=== PATIENT | male | born 1975 | race Caucasian/White ===

== ENCOUNTER 2024-05-03 05:30 | Day surgery (SDC) | payer OTHER ==
[~2024-05-03] VITALS: Ht 182.9 cm; Wt 120.4 kg
[2024-05-03] MEDS ORDERED: ACETAMINOPHEN 500 MG TABLET ONE (05:44)
[2024-05-03] MEDS ORDERED: GABAPENTIN 300 MG CAPSULE ONE (05:45)
[2024-05-03] MEDS ORDERED: oxyCODONE HCL 10 MG TAB.ER.12H PO ONE (05:45)
[2024-05-03] MEDS: SCOPOLAMINE HYDROBROMIDE 1 MG PATCH .72 H (TRANSDERM-SCOP) TD ONE (06:15)
[2024-05-03] MEDS: ACETAMINOPHEN 500 MG TABLET PO ONE (06:15)
[2024-05-03] MEDS: GABAPENTIN 300 MG CAPSULE PO ONE (06:15)
[2024-05-03] MEDS: VANCOMYCIN HCL 1,500 MG in NS 250 ML IV ONE (06:16)
[2024-05-03] MEDS ORDERED: SCOPOLAMINE HYDROBROMIDE 1 MG PATCH .72 H (TRANSDERM-SCOP) TD ONE (06:57)
[2024-05-03] MEDS ORDERED: CEFAZOLIN SOD 2 GM in D5W 50 ML IV ONE (07:00)
[2024-05-03] MEDS ORDERED: DESFLURANE 15 MIN GAS INH ONE (07:10)
[2024-05-03] MEDS ORDERED: ONDANSETRON HCL 4 MG/2 ML VIAL ONE ×2 (07:10→15:06)
[2024-05-03] MEDS ORDERED: NS IRRIG SOLN 1000 ML IR ONE (07:10)
[2024-05-03] MEDS ORDERED: VANCOMYCIN HCL 1000 MG/VIAL IV ONE (07:10)
[2024-05-03] MEDS ORDERED: PROPOFOL 200MG/ 20ML VIAL (DIPRIVAN) IV ONE (07:10)
[2024-05-03] MEDS ORDERED: LR 1,000 ML IV.SOLN IV ONE (07:10)
[2024-05-03] MEDS ORDERED: TRANEXAMIC ACID 1,000 MG/10 ML VIAL ONE (07:10)
[2024-05-03] MEDS ORDERED: ROCURONIUM BROMIDE 10 MG/ML (ZEMURON) ONE (07:10)
[2024-05-03] MEDS: oxyCODONE HCL 10 MG TAB.ER.12H PO ONE (07:10)
[2024-05-03] MEDS ORDERED: BUPIVACAINE /DEX PF 0.75% SPINAL 2 ML AMP INJ ONE (07:10)
[2024-05-03] MEDS ORDERED: WATER FOR IRRIGATION,STERILE 1,000 ML IRRIG.SOLN IR ONE (07:10)
[2024-05-03] MEDS ORDERED: MIDAZOLAM HCL 2 MG/2 ML VIAL (VERSED) ONE (07:10)
[2024-05-03] MEDS ORDERED: SUGAMMADEX SODIUM 200 MG/2 ML VIAL IV ONE (07:10)
[2024-05-03] MEDS ORDERED: BUPIVACAINE /PF 0.25% 30 ML VIAL INJ ONE (07:10)
[2024-05-03] MEDS ORDERED: DEXAMETHASONE SOD PHOSPHATE 4 MG/ML VIAL ONE (07:10)
[2024-05-03] MEDS ORDERED: hydrALAZINE HCL 20 MG/ML VIAL IVP PRN (08:15)
[2024-05-03] MEDS ORDERED: LABETALOL 100 MG/ 20ML VIAL IVP PRN (08:15)
[2024-05-03] MEDS ORDERED: HYDROmorphone 1 MG/ML INJ. CARTRIDGE IVP PRN ×5 (08:15→11:00)
[2024-05-03] MEDS ORDERED: ONDANSETRON HCL 4 MG/2 ML VIAL IVP PRN ×2 (08:15→11:45)
[2024-05-03] MEDS ORDERED: LR 1,000 ML IV SCH (08:15)
[2024-05-03] MEDS ORDERED: MEPERIDINE HCL/PF 25 MG/ML DISP.SYRIN IVP PRN (08:15)
[2024-05-03] MEDS ORDERED: traMADol HCL HCL 50 MG TABLET (ULTRAM) PO PRN (11:00)
[2024-05-03] MEDS ORDERED: LORATADINE 10 MG TABLET PO PRN (11:00)
[2024-05-03] MEDS ORDERED: TAMSULOSIN HCL 0.4 MG CAP PO SCH (11:00)
[2024-05-03] MEDS ORDERED: oxyCODONE HCL 5 MG TABLET PO PRN (11:00)
[2024-05-03] MEDS: HYDROmorphone 2 MG/ML VIAL ONE (11:21)
[2024-05-03] MEDS: METOCLOPRAMIDE HCL 10 MG/2 ML VIAL IVP PRN (11:23)
[2024-05-03] MEDS ORDERED: METOCLOPRAMIDE HCL 10 MG/2 ML VIAL ONE (11:23)
[2024-05-03] MEDS ORDERED: KETOROLAC TROMETHAMINE 10 MG TABLET (TORADOL) PO SCH (14:00)
[2024-05-03] MEDS ORDERED: TAMSULOSIN HCL 0.4 MG CAP ONE (14:30)
[2024-05-03] MEDS ORDERED: METOCLOPRAMIDE HCL 10 MG/2 ML VIAL IVP PRN (14:45)
[2024-05-03] MEDS ORDERED: DIPHENHYDRAMINE HCL 25 MG CAPSULE PO PRN (14:45)
[2024-05-03] MEDS ORDERED: BISACODYL 10 MG/SUPPOSITORY RC PRN (14:45)
[2024-05-03] MEDS ORDERED: LACTULOSE 20 GM/30 ML UDC PO PRN (14:45)
[2024-05-03 14:58] LABS: BASOPHILS % (AUTO) 0.1 % (0.0-2.0); HEMATOCRIT 35.9 % (36-54); LYMPHOCYTES # (AUTO) 0.7 K/uL (1.0-5.5); LYMPHOCYTES % (AUTO) 7.7 % (20.5-51.5); MEAN CORPUSCULAR HEMOGLOBIN 33 pg (27-31); MEAN CORPUSCULAR HGB CONC 33 % (32-36); MEAN CORPUSCULAR VOLUME 98 fL (79.0-98.0); MONOCYTES # (AUTO) 0.3 K/uL (0.0-1.0); MONOCYTES % (AUTO) 3.5 % (1.7-9.3); NEUTROPHILS # (AUTO) 7.9 K/uL (1.8-7.7); NEUTROPHILS % (AUTO) 88.7 % (40.0-70.0); PLATELET COUNT (AUTO) 198 K/uL (130-430); RED BLOOD CELL COUNT(AUTO) 3.66 MIL/uL (4.2-6.2); RED CELL DISTRIBUTION WIDTH 13.6 % (9.0-15.0); WHITE BLOOD COUNT (AUTO) 8.9 K/uL (4.8-10.8)
[2024-05-03] MEDS ORDERED: ceFAZolin SODIUM 2 GM in D5W 50 ML IV SCH (15:00)
[2024-05-03 16:06] VITALS: BP_SYST 156; PULSE 63; RESP 18; TEMP 97; O2SAT 97
[2024-05-03 17:22] VITALS: O2SAT 96
[2024-05-03] MEDS: oxyCODONE HCL 5 MG TABLET PO PRN (18:34)
[2024-05-03 19:43] VITALS: BP_SYST 119; PULSE 70; RESP 18; TEMP 97.8; O2SAT 97
[2024-05-03] MEDS ORDERED: SENNOSIDES/DOCUSATE SODIUM 1 TAB TABLET(SENOKOT-S) PO SCH (21:00)
[2024-05-03] MEDS ORDERED: ACETAMINOPHEN 500 MG TABLET PO SCH (22:00)
[2024-05-04] MEDS ORDERED: ASPIRIN 81 MG TAB.CHEW PO SCH (09:00)
[2024-05-04] MEDS ORDERED: CELECOXIB 200 MG CAPSULE PO SCH (11:00)
== END 2024-05-03 20:15 | disposition home or self-care (01) ==
LOC: SDS 05:30 → SMU 05:30 → STU 15:15 → SDS 20:15
PROVIDERS: ATTEND Student in an Organized Health Care Education/Training Program
DX: M16.0 Bilateral primary osteoarthritis of hip (principal); I10 Essential (primary) hypertension; E66.9 Obesity, unspecified; Z88.6 Allergy status to analgesic agent; Z87.891 Personal history of nicotine dependence; Z79.899 Other long term (current) drug therapy
CPT/HCPCS: 87081; 27130; 97162; 64450; 85025; 36415; 72170; 76942; 97110; 97530; 97116; 82948; 88304; 88311; J3490 ×4; J3370 ×2; J0690; J0696; J1100; J2765; J2250; J2405; J2704; J1171; J7060 ×2; J7120; J7050; A4649; C1776 ×4; C1713; S2900; 76000